=== PATIENT | female | born 1975 | race Two or more races ===

== ENCOUNTER 2017-02-28 19:28 | Emergency (ER) | payer MEDICAID, OTHER ==
[~2017-02-28 19:28] MED LIST: ALPR0.25 PO
--- NOTE | 2017-02-28 20:48 | NUR ---
CALLED NO ANSWER IN [place]
== END 2017-02-28 21:51 | disposition left against medical advice (07) ==
LOC: ER 19:34
DX: Z53.21 Procedure and treatment not carried out due to patient leaving prior to being seen by health care provider (principal)